=== PATIENT | female | born 1975 | race Caucasian/White ===

== ENCOUNTER → 2017-04-15 | Outpatient (CLI) | payer BC ==
[~2017-04-15] MED LIST: ALPR-385 PO; AZIT250T PO; BUPR200T2 PO; BUSP15TA70 PO; ZOLP10TA PO
--- NOTE | 2017-04-15 10:31 | DIAGNOSTIC IMAGING REPORT ---
R ANKLE MIN 3 VIEWS CLINICAL HISTORY: Right ankle pain COMPARISON: None. DISCUSSION: No fractures or dislocations are visualized. There are no erosive or destructive changes. There is mild soft tissue edema IMPRESSION: 1. No evidence of fracture 2. No evidence of erosive disease Electronically signed by: Waqas Osuna M.D. 04/15/2017 10:30 AM Dictated Date/Time: 04/15/2017 10:29 AM
== END | disposition home or self-care (01) ==
LOC: C.RDSM 10:13
PROVIDERS: ATTEND Physician Assistant
DX: M79.671 Pain in right foot (principal)